=== PATIENT | male | born 1925 | race Caucasian/White ===

== ENCOUNTER 2016-10-18 16:14 | Emergency (ER) | payer MEDICARE ==
[~2016-10-18] VITALS: Ht 175.3 cm; Wt 72.6 kg
[~2016-10-18 16:14] MED LIST: AMLO10TA PO; ASP81CT PO; HORMONE SHOT; HSC375CCR PO; HYDR-2889 PO; IMIP25TA4 PO; METH4TAB PO; METO50TA7 PO; MULT-28 PO; MULT-963 PO; OMEP20CA6 PO; ONDA4TAB11 PO; SIMV40TA2 PO; SIMV80TA3 PO; TERA1CAP3 PO; VALS320T8 PO; VALS80TA PO; VIT1CAPS5 PO
[2016-10-18] MEDS ORDERED: DEXAMETHASONE PF 10 MG/ML (DECADRON) VIAL IM STA (17:30)
[2016-10-18] MEDS ORDERED: morphine INJ 10 MG/ML 1ML (SYR OR VIAL) IM STA (17:30)
--- NOTE | 2016-10-18 17:53 | ED Back Pain ---
General Chief Complaint: Lower Extremity Stated Complaint: R HIP AND LEG PAIN Nursing Triage Note: ARRIVED VIA WC TO ROOM 07 WITH COMPLAINTS OF RIGHT SCIATICA THAT HAS BECAME WORSE IN THE LAST COUPLE OF DAYS. STATES DAILY HYDROCODONE DOES NOT HELP. Nursing Sepsis Screen: No Definite Risk Source of Information: Patient, Family (son) Exam Limitations: No Limitations History of Present Illness Time Seen by Provider: 17:05 Initial Comments 89 yo male patient presents to the ED with c/o chronic LBP that has progressively gotten worse in the last couple days. patient radiating down the RLE to the foot. Denies known recent injury. does have a h/o spinal stenosis. Location: Lumbar Spine Timing/Duration: Other (chronic pain, worse over the last 2-3 days) Pain/Injury Location: Back Radiation: Other (RLE) Method of Injury: Unknown Modifying Factors: Worse With Movement, Worse With Pain Medication (no improvement with hydrocodone) Associated Symptoms: muscle spasms, No fever, No weakness, No numbness in legs/ feet, No tingling in legs/feet, No sensory/motor loss, lower back pain, No loss of bowel control, other (patient has chronic urinary incontinence (no different than usual).) Allergies and Home Medications Allergies Coded Allergies: NKANo Known Allergies (Verified Allergy, Unknown, 04/14/06) Home Medications Amlodipine Besylate 10 Mg Tablet, 5 MG PO DAILY, (Reported) Aspirin 81 Mg Chew, 81 MG PO DAILY, (Reported) Hydrocodone Bit/Acetaminophen 1 Each Tablet, 7.5-500 MG PO Q6H PRN, (Reported) prn moderate pain for spinal stenosis Imipramine Hcl 25 Mg Tablet, 25 MG PO TID, (Reported) Metoprolol Succinate 50 Mg Tab.sr.24h, 50 MG PO DAILY, (Reported) Multivitamin 1 Each Tablet, 1 TAB PO DAILY, (Reported) Omeprazole 20 Mg Capsule.dr, 20 MG PO DAILY, (Reported) Ondansetron 4 Mg Tab.rapdis, 4 MG PO Q6H PRN for NAUSEA/VOMITING, #10 Ref 1 Prescribed by: JED PARADA on 10/04/13 1520 Oxycodone HCl/Acetaminophen 1 Each Tablet, 1 EACH PO Q4H PRN for PAIN-MILD TO MODERATE, #30 Ref 0 Prescribed by: ROBERT RUVALCABA on 10/18/16 1905 Prednisone 20 Mg Tab, 20 MG PO BID, #10 Ref 0 Prescribed by: ROBERT RUVALCABA on 10/18/161904 Simvastatin 80 Mg Tablet, 10 MG PO DAILY, (Reported) Terazosin Hcl 1 Mg Capsule, 2 MG PO DAILY, (Reported) Valsartan 80 Mg Tablet, 160 MG PO DAILY, (Reported) Valsartan 320 Mg Tablet, 0.5 TAB PO DAILY, (Reported) [Hormone Shot] , (Reported) 1 shot every 4 months last shot was mid june 2012 Dr. Jay office Constitutional: No fever, No malaise Respiratory: no symptoms reported Cardiovascular: no symptoms reported Gastrointestinal: No abdominal pain, No constipation, No diarrhea, No nausea, No vomiting Genitourinary: No decreased output, No dysuria, No frequency, No hematuria, No pain Musculoskeletal: see HPI Skin: no symptoms reported Psychiatric/Neurological: Denies Numbness, Denies Paresthesia, Denies Tingling , Denies Weakness All Other Systems Reviewed Negative Unless Noted: Yes (Negative excepted noted.) Past Uvrpqhv-Seqful-Qdzyle Hx Patient Social History Alcohol Use: Denies Use Recreational Drug Use: No Smoking Status: Former Smoker Recent Foreign Travel: No Contact w/Someone Who Travel: No Recent Infectious Disease Expo: No Recent Hopitalizations: No Immunizations Up To Date Date of Pneumonia Vaccine: Sep 30, 2009 Surgeries HX Surgeries: Yes (hernia repair, partial colectomy) Respiratory Hx Respiratory Disorders: No Cardiovascular Hx Cardiac Disorders: Yes Cardiac Disorders: Hypertension Neurological Hx Neurological Disorders: No Reproductive System Hx Reproductive Disorders: No Genitourinary Hx Genitourinary Disorders: Yes (OVER ACTIVE BLADDER) Genitourinary Disorders: Prostate Problems Gastrointestinal Hx Gastrointestinal Disorders: Yes Gastrointestinal Disorders: Diverticulosis Musculoskeletal Hx Musculoskeletal Disorders: Yes (SPINAL STENOSIS) Endocrine Hx Endocrine Disorders: No HEENT HX ENT Disorders: No Cancer Hx Cancer: Yes Cancer: Prostate Blood Transfusions Hx Blood Disorders: No Reviewed Nursing Assessment Reviewed/Agree w Nursing PMH: Yes Family Medical History Significant Family History: No Pertinent Family Hx Physical Exam Vital Signs Vital Sign - Last 12Hours 10/18/16 10/18/16 16:59 19:30 Temp 98.0 Pulse 85 Resp 18 B/P (MAP) 122/73 Pulse Ox 99 O2 Delivery Room Air Capillary Refill : Less Than 3 Seconds General Appearance: No Apparent Distress, WD/WN Cardiovascular: Regular Rate, Rhythm, Normal Peripheral Pulses Respiratory: Lungs Clear, Normal Breath Sounds, No Respiratory Distress Peripheral Pulses: 2+ Dorsalis Pedis (R), 2+ Left Dors-Pedis (L), 2+ Radial Pulses (R), 2+ Radial Pulses (L) Gastrointestinal: Normal Bowel Sounds, No Organomegaly, Non Tender, Soft, No Distended Back: Normal Inspection, No CVA Tenderness, Muscle Spasm, Vertebral Tenderness (lumbar tenderness noted.) Extremity: Normal Capillary Refill, No Calf Tenderness, Pedal Edema (2+ pedal edema bilaterally. ), Pelvis Stable, No Swelling, Other (bilateral buttocks and rt posteriolateral thigh TTP.) Neurologic/Psychiatric: Alert, Oriented x3, No Motor/Sensory Deficits, Normal Mood/Affect Skin: Normal Color, Warm/Dry Progress/Results/Core Measures Results/Orders My Orders Orders - ROBERT RUVALCABA Ct Lumbar Spine Wo (10/18/16 17:30) Morphine Injection (Morphine Injection (10/18/16 17:30) Dexamethasone Pf Injection (Decadron Pf (10/18/16 17:30) Oxycodone/Apap 5/325mg Tablet (Percocet (10/18/16 19:15) Vital Signs/I&O Vital Sign - Last 12Hours 10/18/16 10/18/16 16:59 19:30 Temp 98.0 Pulse 85 79 Resp 18 20 B/P (MAP) 122/73 Pulse Ox 99 94 O2 Delivery Room Air Blood Pressure Mean: 89 Diagnostic Imaging Diagonstic Imaging: CT Plain Films/CT/US/NM/MRI: other (lumbar) Comments FINDINGS: The CT abdomen/pelvis exam of 10/04/2013 was reviewed. That study did show degenerative disc and bony disease throughout the lumbar spine particularly at L4-5 and L5-S1. On this study, there does appear to be severe degenerative disc and bony disease at the L4-5 level. Specifically, there is marked narrowing of the disc space and there is approximately 5 mm of retrolisthesis of L4 with respect to L5. The axial images through this level also indicate that there is severe trefoil stenosis and narrowing of the neural foramina bilaterally. There are similar degenerative changes at L5-S1. There is also trefoil stenosis and narrowing of the neural foramina at this level. There is also trefoil stenosis at L3-4 with narrowing of the neural foramen on the left. At the L2-3 level, there is trefoil stenosis as well and again narrowing of the neural foramen on the left. There does not appear to be any significant central stenosis at L1-2. There is no fracture or acute bony abnormality identified. There is no sign of a paraspinal mass. 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 These degenerative changes seem similar to the prior exam. IMPRESSION: 1. There is no evidence for an acute bony abnormality. 2. 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 There is also trefoil stenosis at L3-4 and L5-S1 with narrowing of the neural foramina as described above. 3. If further imaging is desired, then MRI would be recommended. Dictated by: Dictated on workstation # [id number] Reviewed: Reviewed by Me (radiology report reviewed by me. ) Departure Communication Progress Notes diagnostic findings discussed with the patient and son. patient states pain is a 5/10 after morphine. patient given a dose of percocet prior to dsch. patient states he has an appointment with dr. connolly October 27 for f/u. patient instructed to keep the appointment and to call the office for sooner appointment if needed. Impression Impression: Primary Impression: Spinal stenosis of lumbar region with radiculopathy Disposition: HOME, SELF-CARE Condition: Improved Departure-Patient Inst. Decision time for Depature: 19:03 Referrals: WOJCIECH CONNOLLY MD (PCP/Family) Primary Care Physician Patient Instructions: Radiculopathy (DC) Add. Discharge Instructions: All discharge instructions reviewed with patient and/or family. Voiced understanding. Medications as instructed. Do not take the oxycodone with the hydrocodone. He is a Ice pack or heating pad as needed for pain. Avoid heavy lifting, pushing, pulling, bending, or climbing for 7-10 days. Follow-up with Dr. Connolly as previously scheduled. Return to the emergency department for worsened pain, bowel incontinence, bladder incontinence, numbness of the genital area, or any other concerns. Scripts Oxycodone HCl/Acetaminophen (Percocet 5-325 mg Tablet) 1 Each Tablet 1 EACH PO Q4H Y for PAIN-MILD TO MODERATE, #30 TAB 0 Refills Prov: ROBERT RUVALCABA 10/18/16 Prednisone (Prednisone) 20 Mg Tab 20 MG PO BID, #10 TAB 0 Refills Prov: ROBERT RUVALCABA 10/18/16 Copy Copies To 1: WOJCIECH CONNOLLY MD, GRETCHEN L PA Oct 18, 2016 17:53
--- NOTE | 2016-10-18 18:28 | Diagnostic Imaging Report ---
PROCEDURE: CT lumbar spine without contrast. TECHNIQUE: Multiple contiguous axial images were obtained through the lumbar spine without the use of intravenous contrast. Sagittal and coronal reformations were then performed. INDICATION: Low back and right hip pain. COMPARISON: There are no previous lumbar spine examinations available for comparison. FINDINGS: The CT abdomen/pelvis exam of 10/04/2013 was reviewed. That study did show degenerative disc and bony disease throughout the lumbar spine particularly at L4-5 and L5-S1. On this study, there does appear to be severe degenerative disc and bony disease at the L4-5 level. Specifically, there is marked narrowing of the disc space and there is approximately 5 mm of retrolisthesis of L4 with respect to L5. The axial images through this level also indicate that there is severe trefoil stenosis and narrowing of the neural foramina bilaterally. There are similar degenerative changes at L5-S1. There is also trefoil stenosis and narrowing of the neural foramina at this level. There is also trefoil stenosis at L3-4 with narrowing of the neural foramen on the left. At the L2-3 level, there is trefoil stenosis as well and again narrowing of the neural foramen on the left. There does not appear to be any significant central stenosis at L1-2. There is no fracture or acute bony abnormality identified. There is no sign of a paraspinal mass. 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 These degenerative changes seem similar to the prior exam. IMPRESSION: 1. There is no evidence for an acute bony abnormality. 2. 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 There is also trefoil stenosis at L3-4 and L5-S1 with narrowing of the neural foramina as described above. 3. If further imaging is desired, then MRI would be recommended. Dictated by: Dictated on workstation # [id number]
[2016-10-18] MEDS ORDERED: PRD20T PO (19:05)
[2016-10-18] MEDS ORDERED: OXYC-197 PO (19:05)
[2016-10-18] MEDS ORDERED: oxyCODONE/APAP 5/325MG (PERCOCET 5) TABLET PO STA (19:15)
[2016-10-18 19:30] VITALS: BP 135/69
== END 2016-10-18 19:30 | disposition home or self-care (01) ==
LOC: EDUNIT# 16:14 → ER 16:15
DX: M48.06 Spinal stenosis, lumbar region (principal); M54.16 Radiculopathy, lumbar region; I10 Essential (primary) hypertension; Z87.891 Personal history of nicotine dependence; Z79.82 Long term (current) use of aspirin; Z85.46 Personal history of malignant neoplasm of prostate
CPT/HCPCS: 72131; 99282

== ENCOUNTER → 2017-01-14 | Outpatient (CLI) | payer MEDICARE ==
[~2017-01-14] MED LIST changes: +OXYC-197 PO; +PRD20T PO
== END ==
LOC: CARD 13:41
PROVIDERS: ATTEND Internal Medicine Cardiovascular Disease
DX: I25.10 Atherosclerotic heart disease of native coronary artery without angina pectoris (principal); I25.5 Ischemic cardiomyopathy
CPT/HCPCS: 93306